=== PATIENT | male | born 1995 | race Caucasian/White ===

== ENCOUNTER 2018-05-09 13:07 | Outpatient (CLI) | payer OTHER ==
--- NOTE | 2018-05-09 14:21 | RAD ---
PA AND LATERAL VIEWS CHEST: Date: 05/09/18 HISTORY: Dyspnea. FINDINGS: The heart size is normal. There are postop changes with metallic hardware in the scoliotic spine. No focal areas of consolidation, pneumothoraces, or pleural effusions are seen. IMPRESSION: No acute process. POS: OLENA
== END 2018-05-09 13:08 | disposition home or self-care (01) ==
LOC: RAD 13:07
PROVIDERS: ATTEND Internal Medicine Critical Care Medicine
DX: R06.00 Dyspnea, unspecified (principal)
CPT/HCPCS: 71046

== ENCOUNTER 2019-10-21 16:37 | Inpatient (IN) | payer OTHER ==
[2019-10-21 17:43] LABS: #Basophils 0.1 thou/uL (0.0-0.2); #Eosinphils 0.1 thou/uL (0.0-0.7); #Lymphocytes 2.3 thou/uL (1.20-3.40); #Monocytes 0.7 thou/uL (0.11-0.59); #Neutrophils 4.1 thou/uL (1.40-6.50); %Basophils 1.9 % (0.0-1.0); %Lymphocytes 32.1 % (21.0-51.0); %Monocytes 9.2 % (0.0-10.0); %Neutrophils 55.8 % (42.0-75.0); Hemoglobin 16.7 g/dL (14.0-18.0); Mean Corpuscular HGB CONC 30.7 g/dL (32.0-36.0); Mean Corpuscular Hemoglobin 28.7 pg (27.0-31.0); Mean Corpuscular Volume 93.4 fL (78.0-98.0); Mean Platelet Volume 7.5 fL (7.4-10.4); Platelet Count 262 thou/uL (130-400); RBC Distribution Width 13.6 % (11.5-14.5); Red Blood Cell (RBC) Count 5.82 mill/uL (4.70-6.10); White Blood Cell (WBC) Count 7.3 thou/uL (4.8-10.8)
[2019-10-21 18:01] LABS: ALT (SGPT) 117 U/L (8-55); AST (SGOT) 28 U/L (5-34); Albumin 3.8 g/dL (3.5-5.0); Alkaline Phosphatase 69 U/L (40-110); Anion Gap 11 mmol/L (10-20); BUN (Urea Nitrogen) 4 mg/dL (8.9-20.6); Calc. Creatinine Clearance 0 mL/min (70-130); Calcium 8.9 mg/dL (7.8-10.44); Carbon Dioxide 32 mmol/L (22-29); Chloride 98 mmol/L (98-107); Estimated GFR-MDRD Greater than 90; Globulin 2.9 g/dL (2.4-3.5); Glucose 86 mg/dL (70-105); Protein, Total 6.7 g/dL (6.0-8.3); Sodium 138 mmol/L (136-145)
[2019-10-21] MEDS ORDERED: cefTRIAXone\\ROCEPHIN 1 GM VIAL ONE (18:59)
--- NOTE | 2019-10-21 19:05 | RAD ---
CHEST ONE VIEW: History: Cough, dyspnea. Comparison: 05-09-18 FINDINGS: Stable changes of the bony thorax. Stable extensive Sharee rods. Stable cardiac silhouette. The l ungs and pleural spaces are clear. No pneumothorax. IMPRESSION: No significant interval change. No acute cardiopulmonary process. POS: PPP
[2019-10-21 22:20] LABS: Bilirubin Negative (Negative); Blood, Urine Negative (Negative); Clarity Turbid (Clear); Glucose, Urine (Dipstick) Normal (Negative); Leukocyte Negative Leu/uL (Negative); Nitrite Negative (Negative); Protein, Urine (Dipstick) Negative (Neg-Trace); Urobilinogen Normal mg/dL (Less than 2)
[2019-10-21] MEDS ORDERED: Calcium Carbonate 500 MG ChewTAB PO PRN (22:53)
[2019-10-21] MEDS ORDERED: Ondansetron PF 4 MG/2 ML Vial IVP PRN (22:53)
[2019-10-21] MEDS ORDERED: Ondansetron ODT 4 MG TAB PO PRN (22:53)
[2019-10-21] MEDS ORDERED: Acetaminophen 325 MG TAB PO PRN (22:53)
[2019-10-21] MEDS: methylPREDNISolone Sod Succ 40 MG VIAL IVP SCH (23:59)
[2019-10-22] MEDS: NS 0.9% w/ 40 MEQ KCL 1,000 ML IV SCH ×2 (00:27→16:09)
--- NOTE | 2019-10-22 00:29 | HP ---
PRIMARY CARE PHYSICIAN: Dr. Halley Rivas. PRIMARY PHYSICIAN LOC[facility]MS URGENT CARE: Dr. Rahman. CHIEF COMPLAINT: Shortness of breath. HISTORY OF PRESENT ILLNESS: The patient is a 24-year-old white male with chronic restrictive lung disease due to spinal muscular atrophy, was brought into the emergency room with shortness of breath. History obtained from the patient and the family at the bedside. Approximately 10 days ago, patient was diagnosed with UTI at [facility]. He was started on Omnicef. Last week, he was diagnosed with influenza A along with bronchitis. Azithromycin, prednisone as well as baloxavir was prescribed. His symptoms progressively got worse. Earlier today at his primary care physician's office his oxygen was 85%. He was saturating 90% on 8 L/minute by mask. He was sent to the emergency room for evaluation. He has been having thick cough recently. His maximum temperature last week was 105 per family. There was also audible wheezing. No sick contacts reported. PAST MEDICAL HISTORY: 1. Spinal muscular atrophy type 2 with lung involvement. 2. Chronic gastric of lung disease. 3. Seasonal allergies. PAST SURGICAL HISTORY: Surgery for scoliosis in 2007. ALLERGIES: 1. BACTRIM CAUSES RASH. 2. LATEX CAUSES RASH. CURRENT HOME MEDICATION: 1. Albuterol nebulizer as needed. 2. The patient completed Omnicef, prednisone as well as azithromycin. 3. Zyrtec 10 mg daily. 4. Azelastine nasal spray twice daily. SOCIAL HISTORY: The patient is a student at [employer]. He is wheelchair dependent. There are no swallowing deficits. FAMILY HISTORY: Sister with spinal muscular atrophy. REVIEW OF SYSTEMS: All other review of systems were reviewed and were found negative. PHYSICAL EXAMINATION: VITAL SIGNS: In the emergency room showed temperature 98.2 with respirations of 24, blood pressure of 119/71 with O2 saturation of 97% on face mask. GENERAL: A 24-year-old male, in mild distress due to shortness of breath. HEENT: Head atraumatic and normocephalic. Sclerae anicteric. No oral lesion. NECK: Supple. No JVD. LUNGS: Showed diffuse expiratory wheezing along with rhonchi. No rales were appreciated. HEART: S1 and S2 present, regular. No rubs or gallops. ABDOMEN: Soft, bowel sounds present. No rebound or guarding. EXTREMITIES: No edema or calf tenderness. NEUROLOGY: Generalized contractures. PSYCHIATRY: The patient is alert, awake oriented x3. SKIN: Warm and dry. LYMPH: No palpable lymph nodes in the neck. VASCULAR: Peripheral vascular, radial pulses palpable bilaterally. MUSCULOSKELETAL: No joint swelling tenderness. LABORATORY FINDINGS: WBC 7.3 with hemoglobin 16.7, hematocrit 54.4, platelet 262. Chemistry showed sodium 138, potassium 3.8, chloride 98, bicarb 32, BUN of 4, creatinine less than 0.4. Lactic acid 0.9, magnesium 2.0, total bilirubin 2.0. IMAGING STUDIES: 1. Chest x-ray by my review was negative for infiltrate or edema. 2. Telemetry monitoring by my review showed sinus rhythm. 3. EKG by my review showed sinus rhythm. IMPRESSION: 1. Acute hypoxic respiratory failure. 2. Acute bronchitis. 3. Recent influenza A completed, baloxavir. 4. Recent urinary tract infection, completed antibiotics. 5. Hypokalemia. 6. Abnormal liver function tests of unclear etiology. 7. Spinal muscular atrophy with restrictive lung disease. 8. Wheelchair dependent. PLAN: 1. The patient will be monitored on the medical floor. We will resume home noninvasive positive-pressure ventilation at bedtime. We will start him on chest physiotherapy. Continuous O2 monitoring. Nebulizer treatment every 4 hourly. Replace potassium. Consult Pulmonary, Dr. Rahman. We will add guaifenesin. We will start low-dose steroid. 2. GI prophylaxis while on steroids. The patient will require 2 to 3 days for stabilization. 3. The patient and the family understands the above plan of care. 4. We will recheck labs in a.m., and after 24 hours. Job ID: [id number]
[2019-10-22 00:50] VITALS: BMI 20.5
[2019-10-22 05:31] LABS: ALT (SGPT) 97 U/L (8-55); AST (SGOT) 22 U/L (5-34); Albumin 3.3 g/dL (3.5-5.0); Alkaline Phosphatase 66 U/L (40-110); Anion Gap 13 mmol/L (10-20); BUN (Urea Nitrogen) 4 mg/dL (8.9-20.6); Bilirubin, Total 1.4 mg/dL (0.2-1.2); Calc. Creatinine Clearance 203 mL/min (70-130); Calcium 8.4 mg/dL (7.8-10.44); Carbon Dioxide 27 mmol/L (22-29); Chloride 103 mmol/L (98-107); Estimated GFR-MDRD Greater than 90; Globulin 2.9 g/dL (2.4-3.5); Glucose 97 mg/dL (70-105); Protein, Total 6.2 g/dL (6.0-8.3); Sodium 139 mmol/L (136-145)
[2019-10-22] MEDS ORDERED: Mometasone/Formoterol 120 PUFF INHALER INH SCH (06:30)
[2019-10-22 08:09] LABS: #Lymphocytes 1.2 thou/uL (1.20-3.40); #Monocytes 0.1 thou/uL (0.11-0.59); #Neutrophils 4.9 thou/uL (1.40-6.50); %Basophils 0.3 % (0.0-1.0); %Eosinophils 0.4 % (0.0-10.0); %Lymphocytes 19.7 % (21.0-51.0); %Neutrophils 78.7 % (42.0-75.0); Hemoglobin 15.1 g/dL (14.0-18.0); Mean Corpuscular HGB CONC 30.5 g/dL (32.0-36.0); Mean Corpuscular Hemoglobin 28.3 pg (27.0-31.0); Mean Corpuscular Volume 92.8 fL (78.0-98.0); Mean Platelet Volume 7.3 fL (7.4-10.4); Platelet Count 307 thou/uL (130-400); RBC Distribution Width 13.5 % (11.5-14.5); Red Blood Cell (RBC) Count 5.34 mill/uL (4.70-6.10); White Blood Cell (WBC) Count 6.3 thou/uL (4.8-10.8)
[2019-10-22 08:22] LABS: Anion Gap 13 mmol/L (10-20); BUN (Urea Nitrogen) 4 mg/dL (8.9-20.6); Calc. Creatinine Clearance 203 mL/min (70-130); Calcium 8.8 mg/dL (7.8-10.44); Carbon Dioxide 26 mmol/L (22-29); Chloride 104 mmol/L (98-107); Estimated GFR-MDRD Greater than 90; Glucose 105 mg/dL (70-105); Potassium 4.5 mmol/L (3.5-5.1); Sodium 138 mmol/L (136-145)
[2019-10-22] MEDS ORDERED: Azelastine 137 MCG/Spray 30 ML NS SCH (09:00)
[2019-10-22] MEDS ORDERED: Fluticasone Propionate Nasal Spray 16 gm Bottle NASAL SCH (09:00)
[2019-10-22] MEDS ORDERED: Famotidine 20 MG TAB PO SCH (09:00)
[2019-10-22] MEDS ORDERED: Multivit, Therapeutic 1 TAB PO SCH (09:00)
[2019-10-22] MEDS ORDERED: Enoxaparin Sodium 30 MG/0.3 ML SYRINGE SC SCH (09:00)
[2019-10-22] MEDS ORDERED: guaiFENesin ER 600 MG TAB PO SCH (09:00)
[2019-10-22] MEDS: methylPREDNISolone Sod Succ 40 MG VIAL IVP SCH ×2 (09:37→16:39)
[2019-10-22 11:23] VITALS: TEMP 98.6
[2019-10-22 16:36] VITALS: BP 108/68
--- NOTE | 2019-10-22 17:00 | DIS ---
DATE OF ADMISSION: 10/21/2019 DATE OF DISCHARGE: 10/22/2019 DISCHARGE DISPOSITION: To home. PRIMARY DISCHARGE DIAGNOSES: Acute bronchitis with recent influenza infection; acute hypoxic respiratory failure secondary to above, resolved. SECONDARY DISCHARGE DIAGNOSES: History of restrictive lung disease with spinal muscular dystrophy, type 2; prior history of scoliosis with surgery in 2007. PROCEDURES DONE DURING HOSPITALIZATION: Chest x-ray done showed no acute cardiopulmonary abnormality. Blood cultures x2, preliminary, no growth. White count of 6.3, H and H of 15 and 49, platelet count 307 with 78% neutrophils, and MCV 92. BUN 4 and creatinine less than 0.4. Albumin 3.3. DISCHARGE MEDICATIONS: 1. Advair inhaler 2 puffs twice daily. 2. Fluticasone nasal spray at bedtime. 3. Cetirizine 10 mg p.o. at bedtime. 4. Albuterol nebulizer q.4 hourly p.r.n. ALLERGIES: TO LATEX, NATURAL RUBBER, SULFA, AND TRIMETHOPRIM. INPATIENT CONSULT: Dr. Rahman for Pulmonology. DISCHARGE PLAN: The patient to follow up with Dr. Rahman in 2 to 3 weeks and primary care physician Dr. Rivas in a week. BRIEF COURSE DURING HOSPITALIZATION: The patient initially was brought to emergency room with complaints of shortness of breath. Ten days back, the patient had a diagnosis of urinary tract infection and was started on Omnicef. Last week, he also had positive screen for influenza A. He received azithromycin, prednisone, and baloxavir. The patient was saturating 90% on 8 L/min by mask on arrival. He has known history of spinal muscular atrophy type 2 with lung involvement. In view of this history, he was admitted to medical floor. He has done remarkably well after being placed on steroids and nebulizations in the hospital. The patient also had chest physiotherapy done in the hospital. He was evaluated by Dr. Rahman. Geophysics Teacher has cleared him for discharge. The patient and his mother were given complete updates. In fact, the patient has personal chest physiotherapy equipment at home along with oxygen and nebulization medications as well. Please note, I have seen and examined the patient on the day of discharge. Job ID: [id number]
[2019-10-22] MEDS ORDERED: Loratadine 10 MG TAB PO SCH (21:00)
--- NOTE | 2019-10-22 23:56 | CON ---
DATE OF CONSULTATION: 10/22/2019 HISTORY OF PRESENT ILLNESS: Mr. Mendoza is a pleasant 24-year-old male, who was seen once in the office. He has dealt with spinal muscular atrophy. He is quite functional. He is going to stay in him. He gets a senior boot soon from the [employer]. He started having flu-like symptoms about 10 days ago. He was started on Omnicef and then subsequently was later diagnosed with influenza. He is taking azithromycin and prednisone as well as antiviral therapy. He is complaining of chest congestion and was noted to be mildly hypoxemic, and was transferred from his primary care doctor's office to the emergency department and was admitted. PAST MEDICAL HISTORY: Otherwise unremarkable other than scoliosis surgery. ALLERGIES: HE REPORTS BACTRIM ALLERGY. MEDICATIONS: He has a nebulizer at home. Vibration vest at home. He takes Zyrtec and azelastine nasal spray for his allergies. SOCIAL HISTORY: He is a nonsmoker, nondrinker. FAMILY HISTORY: Negative for lung disease in early age. SOCIAL HISTORY: He has very extremely supportive parents. REVIEW OF SYSTEMS: Otherwise negative. He actually says he feels back to normal now. PHYSICAL EXAMINATION: GENERAL: He is in no distress. VITAL SIGNS: He has been afebrile. Heart rates in the 60s, respiratory rates in the teens, oximetry is 98% on room air, blood pressure 108/68. HEAD AND NECK: Unremarkable. LUNGS: Remarkable for no wheezes or rhonchi. HEART: Regular rhythm. ABDOMEN: Soft. LABORATORY DATA: Chest x-ray is clear. IMPRESSION: Hypoxemia secondary to mucus plugging secondary to bronchitis, influenza. It is not unreasonable to give him 5 more days of antibiotics and a short course of prednisone. I have written a prescription for Ceftin and prednisone in liquid form. I will be happy to see him anytime in the office. I relayed this to the parents. Job ID: [id number] [facility]
== END 2019-10-22 17:02 | disposition home or self-care (01) | DRG 193 ==
LOC: ERS 16:37 → ERHOLD 18:49 → SURG A 23:24
PROVIDERS: ADMIT Emergency Medicine; ATTEND Emergency Medicine
DX: J10.1 Influenza due to other identified influenza virus with other respiratory manifestations (principal); J96.01 Acute respiratory failure with hypoxia; N39.0 Urinary tract infection, site not specified; G12.1 Other inherited spinal muscular atrophy; E87.6 Hypokalemia; R94.5 Abnormal results of liver function studies; J98.4 Other disorders of lung; Z88.1 Allergy status to other antibiotic agents; Z91.040 Latex allergy status; Z88.2 Allergy status to sulfonamides; Z91.048 Other nonmedicinal substance allergy status; Z79.899 Other long term (current) drug therapy; Z99.3 Dependence on wheelchair
CPT/HCPCS: 36415; 71045; 80048; 80053; 81003; 83605; 83735; 85025; 87040; 93005; 94640; 94660; 94667; 94668; 94760; 96365; 96366; 96367; J0696; J2920; J3370; J3480; J7620